=== PATIENT | male | born 1980 | race Asian ===

== ENCOUNTER 2016-11-13 21:00 | Inpatient (IN) | payer OTHER ==
[~2016-11-13] VITALS: Ht 165.1 cm; Wt 59.0 kg
[2016-11-13 21:24] VITALS: PULSE 95
[2016-11-13] MEDS ORDERED: HYDR12.58 PO (21:37)
[2016-11-13] MEDS ORDERED: ASPI81TA16 PO (21:37)
[2016-11-13] MEDS ORDERED: SITA1TAB5 PO (21:37)
[2016-11-13 21:58] VITALS: Ht 165.1 cm; Wt 59.0 kg
[2016-11-13] MEDS ORDERED: morphine 2 MG INJ IV PRN (22:00)
[2016-11-13] MEDS ORDERED: NITROGLYCERIN (SL) 0.4 MG TAB SL PRN (22:00)
[2016-11-13] MEDS ORDERED: ONDANSETRON 4 MG INJ IV PRN (22:00)
[2016-11-13] MEDS ORDERED: ATORVASTATIN 40 MG TAB PO SCH (22:00)
[2016-11-13] MEDS ORDERED: INSULIN GLARGINE [LANtus] 3 ML PEN SC SCH (22:00)
[2016-11-13 22:08] VITALS: BP 173/120; PULSE 83; RESP 18
[2016-11-13] MEDS ORDERED: GLUCAGON 1 MG INJ IM PRN (22:30)
[2016-11-13] MEDS ORDERED: DEXTROSE 50% 50 ML SYRINGE IV PRN ×2 (22:30)
[2016-11-13] MEDS ORDERED: GLUCOSE GEL 15 GRAM TUBE PO PRN ×2 (22:30)
[2016-11-13] MEDS ORDERED: GLUCOSE GEL 15 GRAM TUBE BUCCAL PRN (22:30)
[2016-11-13] MEDS: LISINOPRIL 20 MG TAB PO SCH (22:48)
[2016-11-13] MEDS: FAMOTIDINE 20 MG TAB PO SCH (22:48)
[2016-11-13] MEDS: METOPROLOL 25 MG TAB PO SCH (22:49)
[2016-11-13 22:50] LABS: INR 0.91; PARTIAL THROMBOPLASTIN TIME 30.5 Sec (25.0-35.0); PROTIME 12.3 Sec (12.2-14.2)
[2016-11-13 23:04] LABS: TROPONIN-I 0.017 ng/ml (0.00-0.12)
[2016-11-13 23:17] LABS: CK-MB 0.58 ng/ml (0.0-2.4)
[2016-11-13 23:40] LABS: POTASSIUM 3.5 mmol/L (3.5-5.1)
[2016-11-13 23:43] LABS: CREATININE 0.69 mg/dl (0.61-1.24)
[2016-11-13 23:44] LABS: CALCIUM 8.8 mg/dl (8.4-10.2); MAGNESIUM 1.8 mg/dl (1.7-2.5)
[2016-11-14] VITALS (10 sets, daily range): BP systolic 120–132; BP diastolic 61–95; PULSE 61–86; RESP 16–20
[2016-11-14] MEDS ORDERED: ACCUCHECK XX SCH (02:00)
[2016-11-14 04:16] LABS: ALBUMIN 3.7 g/dl (3.3-4.9)
[2016-11-14 04:17] LABS: POTASSIUM 3.3 mmol/L (3.5-5.1)
[2016-11-14 04:19] LABS: CREATININE 0.79 mg/dl (0.61-1.24)
[2016-11-14 04:20] LABS: BILIRUBIN,INDIRECT 0.5 mg/dl (0-1.1); BILIRUBIN,TOTAL 0.5 mg/dl (0.2-1.3); CALCIUM 8.6 mg/dl (8.4-10.2); TOTAL PROTEIN 7.2 g/dl (6.1-8.1)
[2016-11-14 04:21] LABS: CHOL/HDL RATIO 11.5 RATIO
[2016-11-14 04:23] LABS: BASOPHILS % 0.5 % (0.0-2.0); EOSINOPHILS # 0.2 10^3/ul (0.0-0.5); EOSINOPHILS % 2.9 % (0.0-7.0); HEMOGLOBIN 16.3 g/dl (14.0-18.0); LYMPHOCYTES # 3.7 10^3/ul (0.8-2.9); LYMPHOCYTES % 49.2 % (15.0-51.0); MEAN CORPUSCULAR HEMOGLOBIN 31.2 pg (29.0-33.0); MEAN CORPUSCULAR HGB CONC 34.7 g/dl (32.0-37.0); MEAN CORPUSCULAR VOLUME 89.8 fl (82.0-101.0); MEAN PLATELET VOLUME 7.1 fl (7.4-10.4); MONOCYTE # 0.5 10^3/ul (0.3-0.9); NEUTROPHILS % 40.4 % (39.0-77.0); PLATELET COUNT 222 10^3/UL (140-440); RED BLOOD COUNT 5.24 10^6/ul (4.70-6.10); RED CELL DISTRIBUTION WIDTH 12.6 % (11.5-14.5); UNCORRECTED WBC 7.5 10^3/ul (4.8-10.8); WHITE BLOOD COUNT 7.5 10^3/ul (4.8-10.8)
[2016-11-14 04:29] LABS: CK-MB 0.37 ng/ml (0.0-2.4)
[2016-11-14 04:32] LABS: TROPONIN-I 0.016 ng/ml (0.00-0.12)
[2016-11-14 04:50] LABS: THYROID STIMULATING HORMONE 2.52 MIU/L (0.465-4.680)
[2016-11-14 04:58] LABS: CONDITION 1
[2016-11-14] MEDS: HEPARIN 5,000 UNIT/0.5 ML SYG SC SCH ×2 (05:55→14:09)
--- NOTE | 2016-11-14 05:55 | HP ---
DATE OF ADMISSION: 11/13/2016 PRESENTING COMPLAINT: Chest pain. HISTORY OF PRESENTING COMPLAINT: Errol is a 36-year-old male who is being transferred to us from [facility] after he had presented there with a 3-day history of chest pain in midsternal regio n radiating to his back, associated with headache and dizziness. The patient has had no nausea or v omiting. Denies abdominal pain. Denies dysuria or hematuria. The patient has had history of simil ar pain before. The patient also endorses history of substance abuse. He denies history of trauma, however. PAST MEDICAL HISTORY: Diabetes mellitus. SURGICAL HISTORY: The patient denies. ALLERGIES: NO KNOWN DRUG ALLERGIES. The patient also denies history of trauma to the chest. ALLERGIES: NO KNOWN DRUG ALLERGIES. SOCIAL HISTORY: The patient denies tobacco, alcohol, or illicit drug use. FAMILY HISTORY: Positive for high blood pressure. REVIEW OF SYSTEMS: A 12-point review of system was done. Pertinent findings are as in HPI. HOME MEDICATIONS: As follows 1. Aspirin 81 p.o. daily. 2. Hydrochlorothiazide 12.5 b.i.d. 3. Metformin/Janumet , 1 tablet b.i.d. PHYSICAL EXAMINATION: VITAL SIGNS: Blood pressure was severely elevated at the referral center at 199/133, and the heart rate was 113, but here it has improved with temperature of 99, pulse 83, respirations 18, blood pres sure 173/120, saturations 96% on room air. GENERAL: The patient was calm, alert, in no distress. HEENT: Head is normocephalic. Pupils are equal and reactive. NECK: Supple. CHEST: Clear. CARDIOVASCULAR: S1 and S2. No murmurs. ABDOMEN: Soft, nontender, nondistended. EXTREMITIES: No lower extremity edema. SKIN: Devoid of rash or jaundice. LABORATORY VALUES: I reviewed the labs that were sent over from [place]. He had a low serum sodium of 130, low potassium of 3.4. His glucose level was also elevated at 357. The rest of the basic nh tabolic profile was unremarkable. A CBC was also fairly normal. His troponin was elevated at 0.06, and his BNP was normal. D-dimer was less than 317. However, because his pain was radiating to his back, imaging studies included a chest x-ray which was normal, a CT angiogram of the chest that was negative for a pulmonary embolism or aortic dissection, and an EKG that showed normal sinus rhythm with tachycardia at a rate of 109. His urinalysis had 3+ glucose, 1+ protein, trace bacteria, and 0 to 2 white cells, not suggestive of an infection. IMPRESSION: A 36-year-old male with: 1. Chest pain, rule out acute coronary syndrome. 2. Elevated troponins, rule out possible non-ST elevation myocardial infarction versus troponin jerrod k. 3. Accelerated hypertension. 4. Diabetes mellitus type 2, uncontrolled. 5. Hypokalemia. 6. Hyponatremia. 7. Hypochloremia. PLAN: The plan is to admit the patient to telemetry floor and complete ACS rule out with 2 more set s of cardiac enzymes as well as a 2D echo. The patient will benefit from cardiology review for poss ible stress test. In the interim, I will restart him on aspirin, beta nilo, MELINA inhibitor, and s tatin therapy. We will do an A1c to assess his previous glucose control and get a lipid profile ass ay to evaluate his cholesterol levels. We will control his pain using intravenous morphine as well as nitroglycerin, and we will also include p.r.n. blood pressure medicines if indicated. The electr olytes will be repeated right away and will be replaced if still deficient. Further interventions w ill depend on his clinical course. This has been discussed with him in detail. Questions have been answered. Evaluation time has been about 40 minutes. Of note is that I will not restart him on a heparin drip at this point but will be repeating his troponin here. If it remains elevated, then he will be started on anticoagulation. For prophylaxis, he will be on heparin at prophylaxis dose as well as Pepcid. Also, the patient will be started on very low dose insulin at this time to help wit h blood sugar control and the diabetic diet. If he is going to be n.p.o. any time tomorrow, this sh ould be still safe; however, if he is having no procedures, we may increase the dose of his Lantus o r consider resuming his home Janumet. Dictated By: PARKER WYATT MD, BA/[place] Conf#: [id number] DID#: [id number]
[2016-11-14] MEDS: FAMOTIDINE 20 MG TAB PO SCH (08:53)
[2016-11-14] MEDS: INSULIN ASPART [NOVOLOG] 3 ML PEN SC SCH ×3 (08:53→17:23)
[2016-11-14] MEDS: METOPROLOL 25 MG TAB PO SCH (08:54)
[2016-11-14] MEDS: LISINOPRIL 20 MG TAB PO SCH (08:54)
[2016-11-14] MEDS ORDERED: ASPIRIN (EC) 81 MG TAB PO SCH (09:00)
[2016-11-14] MEDS ORDERED: REGADENOSON 0.4 MG/5 ML SYG ONE (11:30)
[2016-11-14] MEDS ORDERED: POTASSIUM CHLORIDE (SR) 20 MEQ TAB PO STA (12:54)
--- NOTE | 2016-11-14 12:55 | CONS ---
Date/Time of Note Date/Time of Note DATE: 11/14/16 TIME: 12:50 Assessment/Plan Assessment/Plan Additional Assessment/Plan Chest pain Diabetes Hypertension -Patient's troponins have been negative, ECG without any significant ischemic abnormalities. Given risk factors, patient plan to proceed with nuclear perfusion cardiac study today. Echocardiogram has been performed. Importance of medication compliance discussed with the patient. Consultation Date/Type/Reason Admit Date/Time Nov 13, 2016 at 21:00 Type of Consultation: cv Reason for Consultation Chest pain Hx of Present Illness This is a 36-year-old male with past medical history of diabetes and hypertension with poor compliance who presents with chest pain for the past 3 days. Symptoms can occur at rest but sometimes worsened by activity. He complains of headache as well and occasional dizziness. He denies shortness of breath. Denies fevers or chills. Denies abdominal pain, nausea or vomiting. He went to [facility] yesterday and transferred to our facility secondary to insurance reasons. 12 point review of systems was performed with all pertinent positives and negatives mentioned above and all else is negative Past Medical History Medical History: diabetes, hypertension Past Surgical History Past Surgical Hx: no surgical history Family History Significant Family History: other (CVA) Social History Alcohol Use: occasionally Smoking Status: Never smoker Drug Use: other (as per H&P, possible use but the patient currently denies) Other Social History beach lifeguard Exam/Review of Systems Vital Signs Vitals Vital Signs Date Time Temp Pulse Resp B/P Pulse Ox O2 Delivery O2 Flow Rate FiO2 11/14/16 12:11 70 11/14/16 08:08 98.1 20 129/88 96 11/13/16 22:08 Room Air Intake and Output 11/13/16 11/13/16 11/14/16 14:59 22:59 06:59 Intake Total 500 ml Balance 500 ml Exam No apparent distress Constitutional: alert, oriented Head: normocephalic Neck: supple Respiratory: clear to auscultation, normal air movement Cardiovascular: other (S1-S2 heard), regular rate and rhythm Gastrointestinal: bowel sounds, non-tender, other (no guarding), soft Extremities: other (no edema) Results Result Diagram: 11/14/16 0343 11/14/16 0343 Results 24 hrs Laboratory Tests Test 11/13/16 21:41 11/13/16 22:05 11/14/16 03:05 11/14/16 03:43 Bedside Glucose 211 199 Activated Partial Thromboplast Time 30.5 Anion Gap 20 H 15 Blood Urea Nitrogen 14 15 Calcium Level 8.8 8.6 Carbon Dioxide Level 28 28 Chloride Level 96 L 98 Creatine Kinase 73 71 Creatine Kinase Index 0.8 0.5 Creatinine 0.69 0.79 Creatinine Kinase MB (Mass) 0.58 0.37 Glucose Level 215 206 INR International Normalized Ratio 0.91 Magnesium Level 1.8 Potassium Level 3.5 3.3 L Prothrombin Time 12.3 Prothrombin Time Ratio 1.0 Sodium Level 140 138 Troponin I 0.017 0.016 Alanine Aminotransferase (ALT/SGPT) 44 Albumin 3.7 Alkaline Phosphatase 135 H Aspartate Amino Transf (AST/SGOT) 27 Basophils # 0.0 Basophils % 0.5 Blood Morphology Comment Cholesterol Level 323 H Cholesterol/HDL Ratio 11.5 Direct Bilirubin 0.00 Eosinophils # 0.2 Eosinophils % 2.9 HDL Cholesterol 28 Hematocrit 47.0 Hemoglobin 16.3 Indirect Bilirubin 0.5 LDL Cholesterol, Calculated 8 Lymphocytes # 3.7 H Lymphocytes % 49.2 Mean Corpuscular Hemoglobin 31.2 Mean Corpuscular Hemoglobin Concent 34.7 Mean Corpuscular Volume 89.8 Mean Platelet Volume 7.1 L Monocytes # 0.5 Monocytes % 7.0 Neutrophils # 3.0 Neutrophils % 40.4 Nucleated Red Blood Cells # 0.0 Nucleated Red Blood Cells % 0.0 Platelet Count 222 Red Blood Count 5.24 Red Cell Distribution Width 12.6 Thyroid Stimulating Hormone (TSH) 2.520 Total Bilirubin 0.5 Total Protein 7.2 Triglycerides Level 1436 H White Blood Count 7.5 Test 11/14/16 07:58 Bedside Glucose 203 Medications Medications Current Medications Insulin Glargine (Lantus) 10 unit QHS SC Last administered on 11/14/16 00:48; Admin Dose 10 UNIT; Start 11/13/16 at 22:00 Aspirin (Halfprin) 81 mg DAILY PO Last administered on 11/14/16 08:53; Admin Dose 81 MG; Start 11/14/16 at 09:00 Metoprolol Tartrate (Lopressor) 25 mg BID PO Last administered on 11/14/16 08: 54; Admin Dose 25 MG; Start 11/13/16 at 22:00 Lisinopril (Zestril) 20 mg DAILY PO Last administered on 11/14/16 08:54; Admin Dose 20 MG; Start 11/13/16 at 22:00 Atorvastatin Calcium (Lipitor) 40 mg HS PO Last administered on 11/13/16 22:49 ; Admin Dose 40 MG; Start 11/13/16 at 22:00 Famotidine (Pepcid) 20 mg BID PO Last administered on 11/14/16 08:53; Admin Dose 20 MG; Start 11/13/16 at 22:00 Ondansetron HCl (Zofran Inj) 4 mg Q6H PRN IV NAUSEA AND/OR VOMITING; Start 11/13 at 22:00 Morphine Sulfate (morphine) 2 mg Q4H PRN IV pain; Start 11/13/16 at 22:00 Nitroglycerin (Nitroglycerin (Sl Tab) 0.4 Mg) 1 tab Q5M PRN SL ANGINA; Start at 22:00 Diagnostic Test (Pha) (Accucheck) 1 ea 02 XX ; Start 11/14/16 at 02:00 Miscellaneous Information 1 ea NOTE XX ; Start 11/13/16 at 22:30 Glucose (Glutose) 15 gm Q15M PRN PO DECREASED GLUCOSE; Start 11/13/16 at 22:30 Glucose (Glutose) 22.5 gm Q15M PRN PO DECREASED GLUCOSE; Start 11/13/16 at 22:30 Dextrose (D50w Syringe) 25 ml Q15M PRN IV DECREASED GLUCOSE; Start 11/13/16 at 22:30 Dextrose (D50w Syringe) 50 ml Q15M PRN IV DECREASED GLUCOSE; Start 11/13/16 at 22:30 Glucagon (Glucagen) 1 mg Q15M PRN IM DECREASED GLUCOSE; Start 11/13/16 at 22:30 Glucose (Glutose) 15 gm Q15M PRN BUCCAL DECREASED GLUCOSE; Start 11/13/16 at 22: 30 Heparin Sodium (Porcine) (Heparin (5000 Units/0.5 ml)) 5,000 unit Q8 SC Last administered on 11/14/16 05:55; Admin Dose 5,000 UNIT; Start 11/14/16 at 06:00 Procedures Procedures ECG demonstrates sinus tachycardia, normal QRS duration, no significant ischemic STT wave abnormalities Jagdeep Valentino DO Nov 14, 2016 12:55
[2016-11-14] MEDS ORDERED: MAGNESIUM SULFATE 2 GM/50 ML 50 ML IVPB ONE (13:00)
--- NOTE | 2016-11-14 15:45 | RADRPT ---
Echocardiogram Report Patient Name: ROSANGELA GU Gender: Male Date: 1980 Study Date: 14-Nov-2016 Auto Bumper Straightener: Yaw Carrillo [facility] Location: [id number] Ref. Physician: PARKER WYATT Quality: Good Procedures: Transthoracic echocardiogram with complete 2D, M-Mode, and doppler examination. Indications: NSTEMI. 2D/M Mode Doppler Measurement Value Normal Ranges Measurement Value Normal Ranges LVIDd 2D 4.9 3.5 - 5.6 cm AV Peak Raj 1.0 m/sec LVIDs 2D 2.8 2.1 - 4.1 cm AV Peak PG 3.8 mmHg LVPWd 2D 1.1 0.6 - 1.1 cm LVOT Peak Raj 0.7 m/sec IVSd 2D 1.0 0.6 - 1.1 cm LVOT Peak PG 1.8 mmHg AoR Diam 2D 3.2 2.0 - 3.7 cm MV E Peak Raj 0.5 m/sec EDV 2D 113.8 cm3 MV A Peak Raj 0.4 m/sec ESV 2D 21.7 cm3 MV E/A 1.4 LA Dimen 2D 3.5 2.3 - 4.0 cm MV Decel Time 172 msec MV Decel [place] 3 MV E/A 1.4 Findings Left Ventricle: Normal left ventricular systolic function. Normal left ventricular cavity size. Mild concentric left ventricular hypertrophy. Ejection fraction is visually estimated at 55 %. Tissue Doppler/Mitral Doppler indices are within normal limits. Right Ventricle: Normal right ventricular size. Normal right ventricular systolic function. Left Atrium: The left atrium is normal in size. Right Atrium: The right atrium is normal in size. Mitral Valve: Mitral valve leaflets appear mildly thickened. Mild mitral annular calcification. No mitral valve regurgitation is seen. Aortic Valve: Normal appearance of the aortic valve. No significant aortic stenosis or insufficiency. Tricuspid Valve: Normal appearance and function of the tricuspid valve with trace physiologic regurgitation. Pulmonic Valve: Pulmonic valve not well visualized. Pericardium: Normal pericardium with no significant pericardial effusion. Aorta: Normal aortic root. IVC: Normal size and normal respiratory collapse consistent with normal right atrial pressure. Conclusions 1.Normal left ventricular systolic function. Normal left ventricular cavity size. Mild concentric left ventricular hypertrophy. Ejection fraction is visually estimated at 55 %. Tissue Doppler/Mitral Doppler indices are within normal limits. 2.Normal right ventricular size. Normal right ventricular systolic function. 3.The left atrium is normal in size. 4.The right atrium is normal in size. 5.No significant valvular stenosis or regurgitation seen. 6.Normal pericardium with no significant pericardial effusion. Electronically Signed By: Jagdeep Valentino 14-Nov-2016 15:44:24 -0800 Patient Name: ROSANGELA GU Study Date: 14-Nov-2016 [id number]
--- NOTE | 2016-11-14 16:07 | RADRPT ---
PROCEDURE: Lexiscan myocardial perfusion study CLINICAL INDICATION: 36 -year-old patient complaining of chest pain. TECHNIQUE: Lexiscan 0.4 mg intravenously separate acquisition gated myocardial perfusion SPECT usi ng Tc 99m Myoview 28.0 mCi intravenously at stress and Tc-99m Myoview, 9.1 mCi intravenously at rest was performed using the rest/stress sequence. Poststress Myoview SPECT images were obtained in the supine position. COMPARISON: No prior studies. FINDINGS: Perfusion images reveal mild nonreversible perfusion abnormality in the inferior wall, likely relate d to soft tissue attenuation. Lexiscan post stress gated SPECT images demonstrate mild hypokinesis of the left ventricle. IMPRESSION: 1. No evidence of stress-induced ischemia. 2. Mild hypokinesis of the left ventricle. 3. The left ventricle ejection fraction at stress is 42%. A call report was made to Dr. Valentino at 04:05 p.m. on November 14, 2016. RPTAT: HH .Lindsey Nicole MD, MD Date Time Electronically viewed and signed by .Lindsey Nicole MD, on 11/14/2016 16:06 .L/
[2016-11-14] MEDS ORDERED: LISI20TA11 PO (16:22)
[2016-11-14] MEDS ORDERED: NIT4 SL (16:22)
[2016-11-14] MEDS ORDERED: METO-448 PO (16:22)
[2016-11-14] MEDS ORDERED: ATOR40TA68 PO (16:22)
[2016-11-14] MEDS ORDERED: LANT3I SC (16:22)
--- NOTE | 2016-11-14 16:28 | PDOCDIS ---
Discharge Instructions DIAGNOSIS Discharge Diagnosis: ACS CONDITION Patient Condition: Stable HOME CARE INSTRUCTIONS: Special Diet: Diabetic diet ACTIVITY: Activity Restrictions: Slowly Increase Activity Rest between Activity FOLLOW UP/APPOINTMENTS Appointments follow up with primary care physician in one week. follow up with cardiology in 2 weeks OTHER ORDERS: Other Orders: ACS - ruled out - continue with medications as prescribed. ANURADHA TAPIA MD Nov 14, 2016 16:28
[2016-11-14] MEDS ORDERED: hydrALAzine 20 MG INJ IV PRN (17:00)
--- NOTE | 2016-11-14 17:27 | DS ---
DATE OF ADMISSION: 11/13/2016 DATE OF DISCHARGE: 11/14/2016 DISCHARGE DIAGNOSES: Acute coronary syndrome, ruled out; hypertensive urgency; type 2 diabetes; hypokalemia, repleted; hyponatremia, repleted; hypochloremia, repleted. HOSPITAL COURSE: This is a 36-year-old male who was transferred from [facility] after having 3 days of chest pain, midsternal, radiating to his back , associated with headache and dizziness. Patient did have a CT angiogram done at [facility] which was negative. Had two troponins that were 0.06. BMP was normal. D-dimer is less than 317. However, because of the radiating to the back and his history, the patient was admitted here to [facility] for further evaluation and treatment. Initial laboratory findings here had shown troponins x2 negative. Triglycerides 1436, cholesterol 323, LDL 8, HDL 28, TSH of 2.5, potassium 3.3, which was repleted, blood sugars are mildly elevated. Coags were normal. Hematology was normal. IMAGIN. The patient had a nuclear stress test that was negative, no evidence of stress-induced ischemia. 2. Mild left ventricle. Left ventricular ejection fraction 42%. The patient also had a 2D echocardiogram showin. Normal left ventricular systolic function, normal left ventricular cavity size, mild concentric left ventricular hypertrophy, ejection fraction visually estimated at 55%. Tissue Doppler and mitral Doppler indices within normal limits. 2. Normal right ventricular size, normal right ventricular systolic function. 3. The left atrium is normal in size. 4. The right atrium is normal in size. 5. Normal pericardium with no significant pericardial effusion. Subsequently, on the day of discharge, the patient's vital signs are stable. Chest pain has resolved. No other acute complaints. The patient not taking his medications as prescribed. The patient agreed with this at this time. DISPOSITION: Home. CONDITION: Stable. DISCHARGE MEDICATIONS: Include: 1. Atorvastatin 40 mg p.o. at bedtime. 2. Lantus 10 units subcu at bedtime. 3. Fenofibrate 128 mg p.o. daily. 4. Metoprolol 25 mg p.o. b.i.d. 5. Nitrostat 1 tab sublingual q. 5h. p.r.n. 6. Aspirin 81 mg p.o. daily. 7. Hydrochlorothiazide 12.5 mg p.o. b.i.d. 8. Janumet mg 1 tab p.o. daily. FOLLOWUP: The patient will follow up with his primary care physician in 1 week. Will follow up with cardiology as needed thereafter. Patient and consultants were made aware of this and agree with the plan. COORDINATION OF DISCHARGE: Greater than 40 minutes. Dictated By: ANURADHA HALL/[place] Conf#: [id number] DID#: [id number] MTDD
[2016-11-15 01:34] LABS: BARBITURATES Negative (NEGATIVE); BENZODIAZEPINES Negative (NEGATIVE); CANNABINOIDS Negative (NEGATIVE); COCAINE Negative (NEGATIVE); OPIATES Positive (NEGATIVE)
--- NOTE | 2016-11-15 16:09 | CARRPT ---
DATE OF PROCEDURE: 11/13/2016 LEXISCAN NUCLEAR STRESS TEST: PATIENT HISTORY: This is a 36-year-old male who presents with exertional chest pain and shortness of breath with diabetes and hypertension. Baseline ECG demonstrates sinus rhythm, left axis deviation, nonspecific ST-T wave abnormalities. Baseline heart rate 65. Baseline blood pressure 123/95. Lexiscan was administered as per protocol. Peak heart rate was 92. Peak blood pressure was 158/105. ECG demonstrated no significant ST-T wave abnormalities/changes. ARRHYTHMIAS: None. Symptoms were headache and dizziness and stomach pain, which resolved. ECG INTERPRETATION: Nonischemic. The nuclear portion will be interpreted by Radiology colleagues. Dictated By: IZABEL LAM/[place] Conf#: [id number] DID#: [id number] MTDD
== END 2016-11-14 19:38 | disposition home or self-care (01) | DRG 313 ==
LOC: MS4 21:00
PROVIDERS: ADMIT Student in an Organized Health Care Education/Training Program; ATTEND Student in an Organized Health Care Education/Training Program
DX: R07.9 Chest pain, unspecified (principal); I10 Essential (primary) hypertension; E11.9 Type 2 diabetes mellitus without complications; E87.6 Hypokalemia; Z79.82 Long term (current) use of aspirin
CPT/HCPCS: 78452; 80048; 80061; 80076; 80307; 82550; 82553; 82962; 83735; 84443; 84484; 85025; 85610; 85730; 93017; 93306; A9500; A9505; J1815; J2785; J3475